=== PATIENT | female | born 1970 | race American Indian/Alaskan Native ===

== ENCOUNTER 2016-10-26 13:25 | Inpatient (IN) | payer OTHER ==
--- NOTE | 2016-10-26 14:54 | Cat Scan Report ---
CT SCAN OF THE CERVICAL SPINE: HISTORY: Neck pain. TECHNIQUE: Contiguous 1.25 mm axial images of the cervical spine were obtained. Sagittal and coronal reformatted images. FINDINGS: There is normal alignment of the cervical spine. The body, pedicles and posterior ligaments appear normal. No evidence of fracture or subluxation is seen. Mild multilevel degenerative disc disease is noted. The spinal canal appears normal. The prevertebral soft tissues appear normal. IMPRESSION: No acute injury is appreciated. Early degenerative disc disease.
[2016-10-26] MEDS ORDERED: NACL 0.9% 1000 ML 1,000 ML IV ONE ×2 (14:55→17:49)
[2016-10-26 15:44] LABS: Basophils % (Auto) 0.5 % (0.0-1.8); Eosinophils % (Auto) 0.2 % (0.0-4.3); Hematocrit 35.2 % (30.3-42.9); Hemoglobin 11.3 gm/dl (10.1-14.3); Mean Corpuscular HGB Conc 32 % (30-34); Mean Corpuscular Hemoglobin 27 pg (28-32); Mean Corpuscular Volume 82 fl (79-97); Platelet Count 162 K/mm3 (140-440); Red Blood Count 4.27 M/mm3 (3.65-5.03); Red Cell Distribution Width 20.3 % (13.2-15.2); White Blood Count 8.9 K/mm3 (4.5-11.0)
[2016-10-26 15:48] LABS: INR 0.97 (0.87-1.13)
[2016-10-26 16:23] LABS: Creatine Kinase MB 1.7 ng/mL (0.0-4.0)
[2016-10-26 16:24] LABS: Alanine Aminotransferase 19 units/L (7-56); Albumin 4.2 g/dL (3.9-5); Albumin/Globulin Ratio 1.1 %; Alkaline Phosphatase 64 units/L (35-129); Blood Urea Nitrogen 37 mg/dL (7-17); Calcium 9.4 mg/dL (8.4-10.2); Carbon Dioxide 26 mmol/L (22-30); Creatine Kinase 210 units/L (30-135); Glucose 113 mg/dL (65-100); Total Protein 8.2 g/dL (6.3-8.2)
[2016-10-26 16:25] LABS: Anion Gap 19 mmol/L; Chloride 94.2 mmol/L (98-107); Potassium 4.3 mmol/L (3.6-5.0); Sodium 135 mmol/L (137-145)
--- NOTE | 2016-10-26 16:35 | Cat Scan Report ---
CT scan of head without IV contrast: History: Syncope, head injury. Findings: Ventricles are normal in size and midline in location. No evidence of acute ischemia, hemorrhage or mass. No extra-axial fluid collection. Normal brainstem and cerebellum. Normal sinuses and mastoid air cells. Impression: No acute intracranial abnormality.
--- NOTE | 2016-10-26 17:57 | Emergency Department Report ---
ED GI Bleed HPI - General Chief complaint: GI Bleed Stated complaint: VOMITING BLOOD Time Seen by Provider: 10/26/16 17:42 Source: patient Mode of arrival: Ambulatory Limitations: No Limitations - History of Present Illness Initial comments: 46-year-old female with a history of abdominal pain nausea vomiting. Patient states that she woke up and vomited a significant amount of dark blood. This never happened to her before. She states that her stools when darkening. Denies fevers chills nausea. She does have a history of smoking and drinking. On arrival to emergency department she had a syncopal episode. She currently feels better now. complaint: blood streaked emesis, melena -: Sudden Radiation: none Quality: painless Improves with: none Worsens with: none - Related Data Home Medications Medication Instructions Recorded Confirmed Last Taken No Known Home Medications [No 10/26/16 10/26/16 Unknown Reported Home Medications] Allergies Allergy/AdvReac Type Severity Reaction Status Date / Time No Known Allergies Allergy Unverified 10/26/16 14:24 ED Review of Systems ROS: Stated complaint: VOMITING BLOOD Other details as noted in HPI Comment: All other systems reviewed and negative Constitutional: denies: chills, fever Eyes: denies: eye pain, eye discharge, vision change ENT: denies: ear pain, throat pain Respiratory: denies: cough, shortness of breath, wheezing Cardiovascular: denies: chest pain, palpitations Endocrine: no symptoms reported Gastrointestinal: nausea, vomiting, hematemesis, melena. denies: abdominal pain , diarrhea Genitourinary: denies: urgency, dysuria, discharge Musculoskeletal: denies: back pain, joint swelling, arthralgia Skin: denies: rash, lesions Neurological: denies: headache, weakness, paresthesias Psychiatric: denies: anxiety, depression Hematological/Lymphatic: denies: easy bleeding, easy bruising ED Past Medical Hx - Past Medical History Hx Hypertension: Yes - Surgical History Additional Surgical History: gallbladder x 15 yers - Family History Family history: no significant - Social History Smoking Status: Current Every Day Smoker Substance Use Type: Alcohol - Medications Home Medications: Home Medications Medication Instructions Recorded Confirmed Last Taken Type No Known Home Medications [No 10/26/16 10/26/16 Unknown History Reported Home Medications] ED Physical Exam - General Limitations: No Limitations General appearance: alert, in no apparent distress - Head Head exam: Present: atraumatic, normocephalic - Eye Eye exam: Present: normal appearance. Absent: scleral icterus, conjunctival injection - ENT ENT exam: Present: mucous membranes moist - Neck Neck exam: Present: normal inspection - Respiratory Respiratory exam: Present: normal lung sounds bilaterally. Absent: respiratory distress, wheezes, rales - Cardiovascular Cardiovascular Exam: Present: regular rate, normal rhythm, normal heart sounds. Absent: systolic murmur, diastolic murmur, rubs, gallop - GI/Abdominal GI/Abdominal exam: Present: soft, normal bowel sounds. Absent: distended, tenderness, guarding, rebound - Extremities Exam Extremities exam: Present: normal inspection - Back Exam Back exam: Present: normal inspection - Neurological Exam Neurological exam: Present: alert, oriented X3 - Psychiatric Psychiatric exam: Present: normal affect, normal mood - Skin Skin exam: Present: warm, dry, intact, normal color. Absent: rash ED Course Vital Signs 10/26/16 10/26/16 10/26/16 14:09 18:19 18:47 Temperature 98.5 F Pulse Rate 99 H 112 H 115 H Respiratory 20 20 16 Rate Blood Pressure 112/80 Blood Pressure 116/78 120/87 [Left] O2 Sat by Pulse 99 100 100 Oximetry 10/26/16 10/26/16 10/26/16 19:04 19:47 20:00 Temperature Pulse Rate 107 H Respiratory 16 12 14 Rate Blood Pressure 92/58 Blood Pressure [Left] O2 Sat by Pulse 99 100 100 Oximetry 10/26/16 20:15 Temperature Pulse Rate 131 H Respiratory 11 L Rate Blood Pressure 92/58 Blood Pressure [Left] O2 Sat by Pulse 100 Oximetry ED Medical Decision Making - Lab Data Result diagrams: 10/26/16 Unknown 10/26/16 Unknown Laboratory Results - last 24 hr 10/26/16 10/26/16 10/26/16 15:00 Unknown Unknown WBC 8.9 RBC 4.27 Hgb 11.3 Hct 35.2 MCV 82 MCH 27 L MCHC 32 RDW 20.3 H Plt Count 162 Lymph % (Auto) 16.2 [place] % (Auto) 8.0 H Eos % (Auto) 0.2 Baso % (Auto) 0.5 Lymph # 1.4 [place] # 0.7 Eos # 0.0 Baso # 0.0 Seg Neutrophils % 75.1 H Seg Neutrophils # 6.7 PT 12.8 INR 0.97 APTT 23.0 L Sodium Potassium Chloride Carbon Dioxide Anion Gap BUN Creatinine Estimated GFR BUN/Creatinine Ratio Glucose Calcium Total Bilirubin AST ALT Alkaline Phosphatase Total Creatine Kinase CK-MB (CK-2) CK-MB (CK-2) Rel Index Troponin T Total Protein Albumin Albumin/Globulin Ratio HCG, Qual Blood Type A POSITIVE Antibody Screen Negative 10/26/16 10/26/16 Unknown Unknown WBC RBC Hgb Hct MCV MCH MCHC RDW Plt Count Lymph % (Auto) [place] % (Auto) Eos % (Auto) Baso % (Auto) Lymph # [place] # Eos # Baso # Seg Neutrophils % Seg Neutrophils # PT INR APTT Sodium 135 L Potassium 4.3 Chloride 94.2 L Carbon Dioxide 26 Anion Gap 19 BUN 37 H Creatinine 0.5 L Estimated GFR > 60 BUN/Creatinine Ratio 74.00 Glucose 113 H Calcium 9.4 Total Bilirubin 0.70 AST 29 ALT 19 Alkaline Phosphatase 64 Total Creatine Kinase 210 H CK-MB (CK-2) 1.7 CK-MB (CK-2) Rel Index 0.8 Troponin T < 0.010 Total Protein 8.2 Albumin 4.2 Albumin/Globulin Ratio 1.1 HCG, Qual Negative Blood Type Antibody Screen - Medical Decision Making 46-year-old female here with suspected upper GI bleed. Had his syncopal episode on arrival to the emergency department. Labs are unremarkable. Hematocrit is within normal limits. Her vital signs are stable. She had a syncopal episode on arrival to the emergency department and struck her head. There is no visible trauma to the head. She had a head CT and neck CT which were negative. I clinically cleared her neck after reviewing CAT scans. This gave her a dose of IV Protonix and IV fluids. Plan to admit the patient for endoscopy in the AM. Plan to place the patient on CIWA protocol and will admit the patient to the hospitalist service plan to discuss the case with GI attending. Discussed with Dr. henao who will scope patient tomorrow. Portions of this chart were dictated with dictation software. There may be dictation errors contained within this note. Critical care attestation.: If time is entered above; I have spent that time in minutes in the direct care of this critically ill patient, excluding procedure time. ED Disposition Clinical Impression: Upper GI bleed Disposition: OP ADMIT IP TO THIS HOSP Is pt being admited?: Yes Condition: Serious Referrals: PRIMARY CARE, [Primary Care Provider] - 3-5 Days Forms: Accompanied Note
[2016-10-26] MEDS ORDERED: PROTONIX IV ONE (18:49)
[2016-10-26] MEDS ORDERED: ATIVAN IV PRN (19:35)
[2016-10-26] MEDS: ATIVAN IV PRN (21:00)
[2016-10-26 21:49] LABS: Basophils % (Auto) 0.5 % (0.0-1.8); Eosinophils % (Auto) 0.2 % (0.0-4.3); Hematocrit 26.9 % (30.3-42.9); Hemoglobin 8.7 gm/dl (10.1-14.3); Mean Corpuscular HGB Conc 32 % (30-34); Mean Corpuscular Hemoglobin 27 pg (28-32); Mean Corpuscular Volume 84 fl (79-97); Platelet Count 128 K/mm3 (140-440); Red Blood Count 3.22 M/mm3 (3.65-5.03); Red Cell Distribution Width 19.9 % (13.2-15.2); White Blood Count 7.1 K/mm3 (4.5-11.0)
[2016-10-26] MEDS: 1: FOLVITE 1 MG, INFUVITE 10 ML, VITAMIN B-1 100 MG in NACL 0.9% 1000 ML 988.8 ML 2: NA IV SCH (23:00)
--- NOTE | 2016-10-26 23:00 | History and Physical Report ---
History of Present Illness Date of examination: 10/26/16 History of present illness: 46-year-old woman with alcohol abuse comes emergency room this morning because she vomited coffee-ground emesis, total 3 episodes. Patient has been using Goody powder multiple times a day for several years Review Of Systems: Constitutional: no weight loss Ears, eyes, nose, mouth and throat: no nasal congestion, no nasal discharge, no sinus pressure, blurry vision, diplopia Neck: No neck pain or rigidity. Cardiovascular: chest pain, orthopnea, palpitations Respiratory: No shortness of breath, cough Gastrointestinal: abdominal pain, hematochezia Genitourinary : no dysuria, frequency , hematuria Musculoskeletal: no muscle ache Integumentary: no rash, no pruritis Neurological: no parathesias, focal weakness Endocrine: no cold or heat intolerance, no polyuria or polydipsia Hematologic/Lymphatic: no easy bruising, no easy bleeding, no gland swelling Allergic/Immunologic: no urticaria, no angioedema. PAST MEDICAL HISTORY:alcohol abuse PAST SURGICAL HISTORY: Cholecystectomy FAMILY HISTORY: Hypertension SOCIAL HISTORY: Drinking 4 beers a day, no tobacco or drugs Medications and Allergies Allergies Allergy/AdvReac Type Severity Reaction Status Date / Time No Known Allergies Allergy Unverified 10/26/16 14:24 Home Medications Medication Instructions Recorded Confirmed Last Taken Type No Known Home Medications [No 10/26/16 10/26/16 Unknown History Reported Home Medications] Active Meds: Active Medications Folic Acid 1 mg/ Multivitamins /Minerals 10 ml/ Thiamine HCl 100 mg/ Sodium Chloride 1,000 mls @ 125 mls/hr IV .BY DURATION [facility] Sodium Chloride (Nacl 0.9% 1000 Ml) 1,000 mls @ 125 mls/hr IV .BY DURATION [facility] Lorazepam (Ativan) 2 mg IV Q1HR PRN PRN Reason: MARKY-Bhupinder 8-15 Last Admin: 10/26/16 21:00 Dose: 2 mg Lorazepam (Ativan) 4 mg IV Q1HR PRN PRN Reason: MARKY-Bhupinder 16- Exam - Physical Exam Narrative exam: Gen. appearance: Patient lying in bed in no acute distress HEENT: Normocephalic/atraumatic, pupils equal round reactive to light, extra alkaline movement intact, no scleral icterus, no JVD or thyromegaly or nodule, neck is supple, mucous membrane moist, no erythema or exudate Heart: S1-S2, regular rate and rhythm Lungs: Clear to auscultation bilateral breathing comfortable Abdomen: Positive bowel sounds, nontender, nondistended, no organomegaly Extremities: No edema, cyanosis, clubbing Neuro:: Oriented 3 , cranial nerves II-12 intact, speech, motor intact Skin: No rash, nodules, warm dry - Constitutional Vitals: Temp Pulse Resp BP Pulse Ox 98.5 F 131 H 11 L 120/65 100 10/26/16 14:09 10/26/16 20:15 10/26/16 20:15 10/26/16 21:31 10/26/16 21:31 Results - Labs CBC & Chem 7: 10/27/16 05:31 10/26/16 Unknown Labs: Abnormal lab results 10/26/16 10/26/16 10/26/16 Range/Units 21:34 Unknown Unknown RBC 3.22 L (3.65-5.03) M/mm3 Hgb 8.7 L (10.1-14.3) gm/dl Hct 26.9 L D (30.3-42.9) % MCH 27 L 27 L (28-32) pg RDW 19.9 H 20.3 H (13.2-15.2) % Plt Count 128 L (140-440) K/mm3 [place] % (Auto) 12.6 H 8.0 H (0.0-7.3) % [place] # 0.9 H (0.0-0.8) K/mm3 Seg Neutrophils % 75.1 H (40.0-70.0) % APTT 23.0 L (24.2-36.6) Sec. Sodium (137-145) mmol/L Chloride (98-107) mmol/L BUN (7-17) mg/dL Creatinine (0.7-1.2) mg/dL Glucose (65-100) mg/dL Total Creatine Kinase (30-135) units/L 10/26/16 Range/Units Unknown RBC (3.65-5.03) M/mm3 Hgb (10.1-14.3) gm/dl Hct (30.3-42.9) % MCH (28-32) pg RDW (13.2-15.2) % Plt Count (140-440) K/mm3 [place] % (Auto) (0.0-7.3) % [place] # (0.0-0.8) K/mm3 Seg Neutrophils % (40.0-70.0) % APTT (24.2-36.6) Sec. Sodium 135 L (137-145) mmol/L Chloride 94.2 L (98-107) mmol/L BUN 37 H (7-17) mg/dL Creatinine 0.5 L (0.7-1.2) mg/dL Glucose 113 H (65-100) mg/dL Total Creatine Kinase 210 H (30-135) units/L - Imaging and Cardiology CT Scan - head: report reviewed Assessment and Plan CT cervical spine negative Hemoglobin has dropped Assessment Upper GI bleed Alcohol withdrawal Alcohol abuse Plan Admit to medicine Start IV Protonix, check serial hemoglobin, consult GI Start ciwa protocol with IV Ativan Start multivitamin, thiamine and folic acid, DVT prophylaxis Addendum Hemoglobin has dropped to 7.2, transfuse packed red blood cells Switch Protonix IV to drip
[2016-10-27] MEDS ORDERED: ZOFRAN IV PRN (00:28)
[2016-10-27 01:12] LABS: Hemoglobin 7.8 gm/dl (10.1-14.3)
[2016-10-27] MEDS: ATIVAN IV PRN (04:35)
[2016-10-27] MEDS: 1: FOLVITE 1 MG, INFUVITE 10 ML, VITAMIN B-1 100 MG in NACL 0.9% 1000 ML 988.8 ML 2: NA IV SCH ×2 (05:07→06:33)
[2016-10-27 05:43] LABS: Hematocrit 22.3 % (30.3-42.9); Hemoglobin 7.2 gm/dl (10.1-14.3)
[2016-10-27] MEDS ORDERED: NACL 0.9% 500 ML 500 ML IV ONE (06:28)
[2016-10-27] MEDS ORDERED: PROTONIX 80 MG in NACL 0.9% 100 ML IV SCH (07:00)
--- NOTE | 2016-10-27 08:55 | Admit Criteria Form ---
Admission Criteria Documentation: GASTROINTESTINAL BLEEDING Clinical Indications for Inpatient Care (Place 'X' for any and all applicable criteria): Ongoing inpatient care may be indicated for gastrointestinal bleeding with ANY ONE of the following (4)(20)(21)(22)(23)(24): [X]I. Active bleeding (eg, fresh voluminous blood in emesis or nasogastric aspirate, or per rectum) [ ]II. Hemodynamic instability [ ]III. Anticoagulation therapy or coagulopathy ((eg, advanced liver disease, irreversible anticoagulation) [ ]IV. Ischemic colitis (22) [ ]V. Endoscopy showing arterial bleeding, adherent clot, nonbleeding visible vessel, varices, flat red spots, ulcer size greater than 2 cm, or portal hypertensive gastropathy [ ]. High-risk low platelet count [ ]VII. Anemia requiring inpatient care as indicated by ANY ONE of the following a)[ ] Cognitive impairment b)[ ] Syncope c)[ ] Heart failure d)[ ] Chest pain e)[ ] Dyspnea f)[ ] Other findings suggesting inadequate perfusion (eg, peripheral or myocardial ischemia, end organ dysfunction) [ ]VIII. High-risk low platelet count [ ]IX. Suspected variceal cause of bleeding as indicated by ANY ONE of the following(27)(28): a)[ ] Known varices b)[ ] Hepatomegaly or splenomegaly c)[ ] Ascites d)[ ] Jaundice or scleral icterus e)[ ] History of liver disease (eg, cirrhosis) f)[ ] Physical findings of portal hypertension (eg, caput [place]) g)[ ] Comorbid disorder indicating risk for portal vein thrombosis (eg , abdominal surgery, sepsis, shock, exchange transfusion, prior umbilical vein catheterization) Extended stay may be needed until ALL of the following are present(20)(38)(47): [ ]a) Hemodynamic stability [ ]b) No evidence of active bleeding (eg, stable Hematocrit) [ ]c) Platelet count, prothrombin time, and partial thromboplastin time acceptable for next level of care [ ]d) Surgical or other acute intervention not needed [ ]e) Oral hydration and diet tolerated The original [facility] [employer] [facility] content created by Ned Knight has been revised. The portions of the content which have been revised are identified through the use of italic text or in bold, and [facility] has neither reviewed nor approved the modified material. All other unmodified content is copyright [facility]. Please see references footnoted in the original [facility] edition 2016 Admission Criteria Met: Yes
[2016-10-27 08:59] LABS: Hematocrit 21.7 % (30.3-42.9); Hemoglobin 6.8 gm/dl (10.1-14.3)
--- NOTE | 2016-10-27 09:12 | Gastroenterology Consultation ---
History of Present Illness - Reason for Consult Consult date: 10/27/16 GI bleed Requesting physician: SOREN AGUILLON - History of Present Illness Patient is a 46 y/o female who was admitted with a GI bleed and a syncopal episode. CT of head and neck was negative. Patient drowsy but easily aroused this am. She reports 3 episodes of N/V of black and bright red blood yesterday prior to coming to the ER and BMs x 2 with black stool overnight. She c/o mild SOB, dizziness, and epigastric pain. Denies fever, wt loss, dysphagia, diarrhea , constipation, or hematochezia. Admits to taking 4 to 5 Goody's powders a day. Drinks 4 to 5 beers daily. No hx of liver disease. No previous EGD. No Fhx of GI cancers. Past History Past Medical History: hypertension Past Surgical History: cholecystectomy Social history: smoking, alcohol abuse Medications and Allergies Allergies Allergy/AdvReac Type Severity Reaction Status Date / Time No Known Allergies Allergy Unverified 10/26/16 14:24 Home Medications Medication Instructions Recorded Confirmed Last Taken Type No Known Home Medications [No 10/26/16 10/26/16 Unknown History Reported Home Medications] Active Meds: Active Medications Folic Acid (Folvite) 1 mg PO QDAY [facility] Folic Acid 1 mg/ Multivitamins /Minerals 10 ml/ Thiamine HCl 100 mg/ Sodium Chloride 1,000 mls @ 125 mls/hr IV .BY DURATION [facility] Last Admin: 10/26/16 23:00 Dose: 125 mls/hr Sodium Chloride (Nacl 0.9% 1000 Ml) 1,000 mls @ 125 mls/hr IV .BY DURATION [facility] Last Admin: 10/27/16 06:33 Dose: Not Given Sodium Chloride (Nacl 0.9% 1000 Ml) 1,000 mls @ 100 mls/hr IV DIRECT DAV Pantoprazole Sodium 80 mg/ (Sodium Chloride) 100 mls @ 10 mls/hr IV DIRECT DAV PRN Reason: 8 MG/HR Lorazepam (Ativan) 2 mg IV Q1HR PRN PRN Reason: CIWA-Ar 8-15 Last Admin: 10/27/16 04:35 Dose: 2 mg Lorazepam (Ativan) 4 mg IV Q1HR PRN PRN Reason: CIWA-Ar 16-25 Ondansetron HCl (Zofran) 4 mg IV Q8H PRN PRN Reason: N/V unrelieved by Reglan Thiamine HCl (Vitamin B-1) 100 mg PO QDAY [facility] Review of Systems - Review of Systems All systems: negative Cardiovascular: shortness of breath Gastrointestinal: abdominal pain (epigastric), hematemesis, coffee ground emesis , melena Neurological: other (dizziness) Exam - Constitutional Vital Signs: Temp Pulse Resp BP Pulse Ox 98.0 F 125 H 20 89/55 98 10/26/16 23:00 10/27/16 06:55 10/27/16 06:55 10/27/16 05:09 10/27/16 06:55 General appearance: mild distress, well-nourished, other (solmnent) - EENT Eyes: PERRL, EOM intact ENT: hearing intact - Neck Neck: supple, normal ROM - Respiratory Respiratory: bilateral: CTA - Cardiovascular Rhythm: other (tachycardia) Heart Sounds: Present: S1 & S2 Extremities: No edema - Gastrointestinal General gastrointestinal: Present: soft, tender (epigastric), non-distended, normal bowel sounds - Integumentary Integumentary: Present: warm, dry - Neurologic Neurological: alert and oriented x3 - Labs CBC & Chem 7: 10/27/16 08:48 10/26/16 Unknown Lab Results: Laboratory Results - last 24 hr 10/26/16 10/26/16 10/26/16 Unknown Unknown Unknown WBC 8.9 RBC 4.27 Hgb 11.3 Hct 35.2 MCV 82 MCH 27 L MCHC 32 RDW 20.3 H Plt Count 162 Lymph % (Auto) 16.2 [place] % (Auto) 8.0 H Eos % (Auto) 0.2 Baso % (Auto) 0.5 Lymph # 1.4 [place] # 0.7 Eos # 0.0 Baso # 0.0 Seg Neutrophils % 75.1 H Seg Neutrophils # 6.7 PT 12.8 INR 0.97 APTT 23.0 L Sodium 135 L Potassium 4.3 Chloride 94.2 L Carbon Dioxide 26 Anion Gap 19 BUN 37 H Creatinine 0.5 L Estimated GFR > 60 BUN/Creatinine Ratio 74.00 Glucose 113 H Calcium 9.4 Total Bilirubin 0.70 AST 29 ALT 19 Alkaline Phosphatase 64 Total Creatine Kinase 210 H CK-MB (CK-2) 1.7 CK-MB (CK-2) Rel Index 0.8 Troponin T < 0.010 Total Protein 8.2 Albumin 4.2 Albumin/Globulin Ratio 1.1 HCG, Qual 10/26/16 10/27/16 10/27/16 Unknown 00:39 05:31 WBC RBC Hgb 7.8 L 7.2 L Hct 24.0 L 22.3 L MCV MCH MCHC RDW Plt Count Lymph % (Auto) [place] % (Auto) Eos % (Auto) Baso % (Auto) Lymph # [place] # Eos # Baso # Seg Neutrophils % Seg Neutrophils # PT INR APTT Sodium Potassium Chloride Carbon Dioxide Anion Gap BUN Creatinine Estimated GFR BUN/Creatinine Ratio Glucose Calcium Total Bilirubin AST ALT Alkaline Phosphatase Total Creatine Kinase CK-MB (CK-2) CK-MB (CK-2) Rel Index Troponin T Total Protein Albumin Albumin/Globulin Ratio HCG, Qual Negative 10/27/16 08:48 WBC RBC Hgb 6.8 L Hct 21.7 L MCV MCH MCHC RDW Plt Count Lymph % (Auto) [place] % (Auto) Eos % (Auto) Baso % (Auto) Lymph # [place] # Eos # Baso # Seg Neutrophils % Seg Neutrophils # PT INR APTT Sodium Potassium Chloride Carbon Dioxide Anion Gap BUN Creatinine Estimated GFR BUN/Creatinine Ratio Glucose Calcium Total Bilirubin AST ALT Alkaline Phosphatase Total Creatine Kinase CK-MB (CK-2) CK-MB (CK-2) Rel Index Troponin T Total Protein Albumin Albumin/Globulin Ratio HCG, Qual Assessment and Plan 1.GI bleed 2.hematemesis/coffee-ground emesis 3.melena 4.syncope -HGB 7.2-trending down- transfusion of 2 units PRBCs pending -continue to monitor H/H and transfuse as needed -hold blood thinning medications -continue PPI gtt -Keep NPO -will schedule for EGD today -will follow
[2016-10-27] MEDS ORDERED: NACL 0.9% 500 ML 500 ML ONE (09:29)
[2016-10-27] MEDS ORDERED: VITAMIN B-1 PO SCH (10:00)
[2016-10-27] MEDS ORDERED: PROTONIX IV SCH (10:00)
[2016-10-27] MEDS ORDERED: FOLVITE PO SCH (10:00)
--- NOTE | 2016-10-27 10:26 | Progress Note ---
Assessment and Plan Assessment and plan: GI bleed. Continue to monitor serial H&H. Transfusion of 2 units PRBCs is pending. GI following. Continue IV Protonix drip. Acute blood loss anemia. Etiology secondary to above. Continue to monitor H&H and transfuse as needed. Hematemesis. Keep nothing by mouth. EGD per GI today. Melena. As above. Await EGD results. Syncope. Etiology secondary to above. Alcohol withdrawal syndrome. [facility] protocol. History Interval history: Patient is somnolent but arousable to voice and painful stimuli. Hospitalist Physical - Constitutional Vitals: Temp Pulse Resp BP Pulse Ox 99.1 F 117 H 17 93/62 99 10/27/16 09:55 10/27/16 09:55 10/27/16 09:55 10/27/16 09:55 10/27/16 09:55 General appearance: Present: no acute distress, well-nourished - EENT Eyes: Present: PERRL, EOM intact ENT: hearing intact, clear oral mucosa, dentition normal - Neck Neck: Present: supple, normal ROM - Respiratory Respiratory effort: normal Respiratory: bilateral: CTA - Cardiovascular Rhythm: regular Heart Sounds: Present: S1 & S2. Absent: gallop, rub - Extremities Extremities: no ischemia, No edema, Full ROM - Abdominal General gastrointestinal: soft, non-tender, non-distended, normal bowel sounds - Integumentary Integumentary: Present: clear, warm, dry - Neurologic Neurologic: CNII-XII intact, moves all extremities Results - Labs CBC & Chem 7: 10/27/16 08:48 10/26/16 Unknown Labs: Laboratory Last Values WBC 8.9 K/mm3 (4.5-11.0) 10/26/16 Unknown RBC 4.27 M/mm3 (3.65-5.03) 10/26/16 Unknown Hgb 6.8 gm/dl (10.1-14.3) L 10/27/16 08:48 Hct 21.7 % (30.3-42.9) L 10/27/16 08:48 MCV 82 fl (79-97) 10/26/16 Unknown MCH 27 pg (28-32) L 10/26/16 Unknown MCHC 32 % (30-34) 10/26/16 Unknown RDW 20.3 % (13.2-15.2) H 10/26/16 Unknown Plt Count 162 K/mm3 (140-440) 10/26/16 Unknown Lymph % (Auto) 16.2 % (13.4-35.0) 10/26/16 Unknown [place] % (Auto) 8.0 % (0.0-7.3) H 10/26/16 Unknown Eos % (Auto) 0.2 % (0.0-4.3) 10/26/16 Unknown Baso % (Auto) 0.5 % (0.0-1.8) 10/26/16 Unknown Lymph # 1.4 K/mm3 (1.2-5.4) 10/26/16 Unknown [place] # 0.7 K/mm3 (0.0-0.8) 10/26/16 Unknown Eos # 0.0 K/mm3 (0.0-0.4) 10/26/16 Unknown Baso # 0.0 K/mm3 (0.0-0.1) 10/26/16 Unknown Seg Neutrophils % 75.1 % (40.0-70.0) H 10/26/16 Unknown Seg Neutrophils # 6.7 K/mm3 (1.8-7.7) 10/26/16 Unknown PT 12.8 Sec. (12.2-14.9) 10/26/16 Unknown INR 0.97 (0.87-1.13) 10/26/16 Unknown APTT 23.0 Sec. (24.2-36.6) L 10/26/16 Unknown Sodium 135 mmol/L (137-145) L 10/26/16 Unknown Potassium 4.3 mmol/L (3.6-5.0) 10/26/16 Unknown Chloride 94.2 mmol/L (98-107) L 10/26/16 Unknown Carbon Dioxide 26 mmol/L (22-30) 10/26/16 Unknown Anion Gap 19 mmol/L 10/26/16 Unknown BUN 37 mg/dL (7-17) H 10/26/16 Unknown Creatinine 0.5 mg/dL (0.7-1.2) L 10/26/16 Unknown Estimated GFR > 60 ml/min 10/26/16 Unknown BUN/Creatinine Ratio 74.00 % 10/26/16 Unknown Glucose 113 mg/dL (65-100) H 10/26/16 Unknown Calcium 9.4 mg/dL (8.4-10.2) 10/26/16 Unknown Total Bilirubin 0.70 mg/dL (0.1-1.2) 10/26/16 Unknown AST 29 units/L (5-40) 10/26/16 Unknown ALT 19 units/L (7-56) 10/26/16 Unknown Alkaline Phosphatase 64 units/L (35-129) 10/26/16 Unknown Total Creatine Kinase 210 units/L (30-135) H 10/26/16 Unknown CK-MB (CK-2) 1.7 ng/mL (0.0-4.0) 10/26/16 Unknown CK-MB (CK-2) Rel Index 0.8 (0-4) 10/26/16 Unknown Troponin T < 0.010 ng/mL (0.00-0.029) 10/26/16 Unknown Total Protein 8.2 g/dL (6.3-8.2) 10/26/16 Unknown Albumin 4.2 g/dL (3.9-5) 10/26/16 Unknown Albumin/Globulin Ratio 1.1 % 10/26/16 Unknown HCG, Qual Negative (Negative) 10/26/16 Unknown Blood Type A POSITIVE 10/26/16 15:00 Antibody Screen Negative 10/26/16 15:00 Crossmatch See Detail 10/26/16 15:00
--- NOTE | 2016-10-27 12:45 | Anesthesia Consultation ---
Anesthesia Consult and Med Hx Date of service: 10/27/16 - Airway Anesthetic Teeth Evaluation: Good ROM Head & Neck: Adequate Mental/Hyoid Distance: Adequate Mallampati Class: Class II Intubation Access Assessment: Probably Good - Pulmonary Exam CTA: Yes - Cardiac Exam Cardiac Exam: RRR - Pre-Operative Health Status ASA Pre-Surgery Classification: ASA2 Proposed Anesthetic Plan: MAC - Pulmonary Hx Smoking: Yes (1/2 ppd x20yrs) - Cardiovascular System Hx Hypertension: Yes - Hematic Hx Anemia: Yes (Transfused 2 PRBC this AM) - Other Systems Hx Alcohol Use: Yes (4-5 beers daily) - Additional Comments Anesthesia Medical History Comments: NAC
--- NOTE | 2016-10-27 12:46 | Anesthesia Day of Surgery ---
Anesthesia Day of Surgery - Day of Surgery Patient Examined: Yes Patient H&P Reviewed: Yes Patient is NPO: Yes
[2016-10-27] MEDS ORDERED: NACL 0.9% 1000 ML 1,000 ML IV SCH (13:00)
[2016-10-27] MEDS: NACL 0.9% 1000 ML 1,000 ML IV SCH ×2 (13:08→16:28)
[2016-10-27] MEDS ORDERED: DIPRIVAN 10 MG/ML IV ONE (13:56)
[2016-10-27] MEDS ORDERED: BREVIBLOC IV ONE (14:00)
[2016-10-27] MEDS ORDERED: XYLOCAINE MPF 2% ONE (14:00)
--- NOTE | 2016-10-27 14:14 | Post Operative Note ---
Pre-op diagnosis: anemia, gi bleed Post-op diagnosis: same Findings: EGD: hiatal hernia - ulcer x 2 (6-8 mm) with moderate erythema and inflammation antrum (bx's) - otherwise benign Procedure: EGD Anesthesia: MAC Surgeon: DANIEL SARABIA Estimated blood loss: none Pathology: list Specimen disposition: to lab Condition: stable Disposition: floor
[2016-10-27 15:11] LABS: Hemoglobin 8.6 gm/dl (10.1-14.3)
--- NOTE | 2016-10-27 16:59 | Post Anesthesia Evaluation ---
- Post Anesthesia Evaluation Patient Participated: Yes Airway Patent: Yes Stable Respiratory Function: Yes Nausea/Vomiting: No Temp > 96.8F: Yes Pain Manageable: Yes Adequeate Hydration: Yes Anesthesia Complications: No
--- NOTE | 2016-10-27 17:14 | Operative Report ---
EGD WITH COLD BIOPSY INDICATION: 1. Anemia. 2. Upper GI bleed. MEDICATIONS: Propofol per RESEARCH ATTORNEY. COMPLICATIONS: None. DESCRIPTION OF PROCEDURE: The patient brought to procedure suite. The patient had the procedure, I discussed with her at length. All risks, complications, and benefits discussed after which the patient signed for the procedure to be performed. The patient was placed in left lateral decubitus position. Mouth block was placed in the patient's oral cavity. After adequate sedation medication as above, endoscope was introduced into the mouth and brought to the level of the second portion of duodenum. Retroflexion view performed. The patient's vital signs remained stable throughout the procedure. FINDINGS: There was noted to be a medium hiatal hernia approximately 3 cm noted at the GE junction, 38 cm from the gums. Nonobstructing Schatzki's ring noted at GE junction. The esophagus otherwise appeared to be normal. There were two 69 mm mainly wide based ulcers noted in the gastric antrum. There was moderate erythema and inflammation also noted in the antrum. Biopsies were taken and sent to pathology. The remaining stomach otherwise appeared to be normal. There was mild bulbar duodenitis noted. The duodenum otherwise appeared to be normal. Retroflexion view performed in the stomach showed no other pathology other than noted above. The patient tolerated the procedure well. No complications during the procedure. IMPRESSION: 1. Hiatal hernia. 2. Nonobstructing Schatzki's ring. 3. Otherwise, normal esophagus. 4. Ulcers x 2 with inflammation and gastritis in the antrum, biopsies performed. 5. Otherwise, normal duodenum 6. Mild duodenitis. RECOMMENDATIONS: 1. Follow up biopsy results. 2. Stool for Helicobacter pylori, if present. PPI IV b.i.d. 3. Advance diet. 4. If hemoglobin and hematocrit stable in a.m., okay to discharge from GI standpoint. Follow up as an outpatient. JOB# [id number] [facility]
[2016-10-27] MEDS: MORPHINE IV PRN (18:25)
[2016-10-28] MEDS: MORPHINE IV PRN ×2 (00:42→12:04)
[2016-10-28] MEDS: NACL 0.9% 1000 ML 1,000 ML IV SCH (01:33)
[2016-10-28 06:46] LABS: Basophils % (Auto) 1.2 % (0.0-1.8); Hematocrit 23.9 % (30.3-42.9); Hemoglobin 7.9 gm/dl (10.1-14.3); Mean Corpuscular HGB Conc 33 % (30-34); Mean Corpuscular Hemoglobin 28 pg (28-32); Mean Corpuscular Volume 85 fl (79-97); Red Blood Count 2.81 M/mm3 (3.65-5.03); Red Cell Distribution Width 17.9 % (13.2-15.2); White Blood Count 5.7 K/mm3 (4.5-11.0)
[2016-10-28 06:53] LABS: Platelet Count 84 K/mm3 (140-440)
[2016-10-28 07:03] LABS: Anion Gap 15 mmol/L; Blood Urea Nitrogen 9 mg/dL (7-17); Calcium 8.2 mg/dL (8.4-10.2); Carbon Dioxide 23 mmol/L (22-30); Chloride 106.9 mmol/L (98-107); Glucose 89 mg/dL (65-100); Sodium 141 mmol/L (137-145)
--- NOTE | 2016-10-28 10:42 | Discharge Summary ---
Providers - Providers Date of Admission: 10/26/16 22:59 Attending physician: TEE GRIER MD Primary care physician: NATHALIA SLAUGHTER MD Hospitalization Condition: Serious Hospital course: 46-year-old woman with alcohol abuse comes emergency room this morning because she vomited coffee-ground emesis, total 3 episodes. Patient has been using Goody powder multiple times a day for several years EGD: hiatal hernia - ulcer x 2 (6-8 mm) with moderate erythema and inflammation antrum (bx's) - otherwise benign GI bleed. Continue to monitor serial H&H. Transfusion of 2 units PRBCs is pending. GI following. Continue IV Protonix drip. Acute blood loss anemia. Etiology secondary to above. Continue to monitor H&H and transfuse as needed. Hematemesis. Keep nothing by mouth. EGD per GI today. Melena. As above. Await EGD results. Syncope. Etiology secondary to above. Alcohol withdrawal syndrome. [facility] protocol. Disposition: DC- TO HOME OR SELFCARE Time spent for discharge: 33 minutes Core Measure Documentation - Palliative Care Palliative Care/ Comfort Measures: Not Applicable - Core Measures Any of the following diagnoses?: none Exam - Constitutional Vitals: Temp Pulse Resp BP Pulse Ox 98.0 F 86 18 117/67 100 10/28/16 08:31 10/28/16 08:31 10/28/16 08:31 10/28/16 08:31 10/28/16 08:31 General appearance: Present: no acute distress, well-nourished - EENT Eyes: Present: PERRL ENT: hearing intact, clear oral mucosa - Neck Neck: Present: supple, normal ROM - Respiratory Respiratory effort: normal Respiratory: bilateral: CTA - Cardiovascular Heart Sounds: Present: S1 & S2. Absent: rub, click - Extremities Extremities: pulses symmetrical, No edema Peripheral Pulses: within normal limits - Abdominal General gastrointestinal: Present: soft, non-tender, non-distended, normal bowel sounds Female genitourinary: Present: normal - Integumentary Integumentary: Present: clear, warm, dry - Musculoskeletal Musculoskeletal: gait normal, strength equal bilaterally - Psychiatric Psychiatric: appropriate mood/affect, intact judgment & insight - Neurologic Neurologic: CNII-XII intact, moves all extremities Plan Follow up with: PRIMARY CARE, [Primary Care Provider] - 3-5 Days Forms: Accompanied Note Prescriptions: Folic Acid [Folvite] 1 mg PO QDAY #30 tablet Pantoprazole [Protonix] 40 mg PO BID #60 tablet Thiamine [Vitamin B-1] 100 mg PO QDAY #30 tablet
[2016-10-28 12:48] VITALS: BP 123/82
--- NOTE | 2016-10-28 13:36 | Gastroenterology Progress Note ---
Assessment and Plan GI: pud stable overnight - ppi qd - follow labs - ok to d/c, call if needed Subjective Date of service: 10/28/16 Interval history: - no signs bleeding overnight Objective - Constitutional Vitals: Temp Pulse Resp BP Pulse Ox 98.2 F 86 18 123/82 100 10/28/16 12:24 10/28/16 12:24 10/28/16 12:24 10/28/16 12:24 10/28/16 12:24 General appearance: no acute distress - Respiratory Respiratory: bilateral: CTA - Cardiovascular Rhythm: regular Heart Sounds: Present: S1 & S2 - Gastrointestinal General gastrointestinal: Present: soft, non-tender, non-distended - Labs CBC & Chem 7: 10/28/16 06:07 10/28/16 06:07 Labs: Laboratory Results - last 24 hr 10/27/16 10/28/16 10/28/16 14:40 06:07 06:07 WBC 5.7 RBC 2.81 L Hgb 8.6 L 7.9 L Hct 27.0 L 23.9 L MCV 85 MCH 28 MCHC 33 RDW 17.9 H Plt Count 84 L Lymph % (Auto) 36.1 H Barron % (Auto) 9.2 H Eos % (Auto) 2.0 Baso % (Auto) 1.2 Lymph # 2.0 Barron # 0.5 Eos # 0.1 Baso # 0.1 Seg Neutrophils % 51.5 Seg Neutrophils # 2.9 Sodium 141 Potassium 4.0 Chloride 106.9 Carbon Dioxide 23 Anion Gap 15 BUN 9 Creatinine 0.4 L Estimated GFR > 60 BUN/Creatinine Ratio 22.50 Glucose 89 Calcium 8.2 L
[2016-10-28] MEDS ORDERED: PROTONIX PO SCH (22:00)
== END 2016-10-28 15:46 | disposition home or self-care (01) | DRG 378 ==
LOC: ED 13:25 → 4A 22:59
PROVIDERS: ADMIT Internal Medicine; ATTEND Internal Medicine
PROC: 30233N1 Transfusion of Nonautologous Red Blood Cells into Peripheral Vein, Percutaneous Approach (ICD-10-PCS; 2016-10-26)
PROC: 0DB68ZX Excision of Stomach, Via Natural or Artificial Opening Endoscopic, Diagnostic (ICD-10-PCS; principal; 2016-10-27)
DX: K25.4 Chronic or unspecified gastric ulcer with hemorrhage (principal); F10.239 Alcohol dependence with withdrawal, unspecified; D62 Acute posthemorrhagic anemia; I10 Essential (primary) hypertension; F17.200 Nicotine dependence, unspecified, uncomplicated; K92.1 Melena; K44.9 Diaphragmatic hernia without obstruction or gangrene; K29.80 Duodenitis without bleeding; Z90.49 Acquired absence of other specified parts of digestive tract; Z82.49 Family history of ischemic heart disease and other diseases of the circulatory system
CPT/HCPCS: 36415; 70450; 72125; 80048; 80053; 82550; 82553; 84484; 84703; 85014; 85018; 85025; 85610; 85730; 86850; 86900; 86901; 86920; 88305; 88342; 93005; 93010; 96361; 96365; 96375; 99406; C9113; J2060; J2270; J2405; J2704; J3411; J7030; J7040; P9016